=== PATIENT | female | born 1990 ===

== ENCOUNTER 2024-06-08 09:20 | Emergency (ER) | payer MEDICAID, SELFPAY ==
[2024-06-08 09:33] VITALS: BP 109/75; RESP 16; TEMP 36.4; O2SAT 98; BMI 27.4
[2024-06-08 09:47] LABS: Appearance Urine Cloudy (Clear); Bilirubin Urine 3+ (Negative); Blood Urine Negative (Negative); Color Urine Orange (Yellow); Glucose Urine Trace (Negative); Ketones Urine 1+ (Negative); Leukocyte Esterase Urine Negative (Negative); Nitrite Urine Negative (Negative); Protein Urine 2+ (Negative); Specific Gravity Urine >= 1.030 (1.000-1.030); Urobilinogen Urine >=8.0 (0.2-1.0)
[2024-06-08 10:03] LABS: RBC Urine 0-2 (0-2)
[2024-06-08 10:04] LABS: Bacteria Urine Few; Squamous Epithelial Cell Urine Many (None-Few)
--- NOTE | 2024-06-08 10:14 | CRLHL7_ITS ---
For Patients: As a result of the Century Cures Act, medical imaging exams and procedure reports are released immediately into your electronic medical record. You may view this report before your referring provider. If you have questions, please contact your health care provider. Indication: Shortness of breath Technique: Chest 2 views Comparison: None Findings/Impression: Cardiovascular and mediastinum: Heart size and vasculature are normal in caliber and appearance. Mediastinum is within normal limits. Lungs and pleural spaces: Lungs are clear. No sign of infiltrate or mass. No sign of pleural effusion. No pneumothorax. Bones and soft tissues: No significant findings. Dictated by Felice Cain MD @ 06/08/2024 10:49:03 AM (Electronically Signed)
[2024-06-08 10:23] LABS: PCR FLU A Negative PCR FLU A (Negative); PCR FLU B Negative PCR FLU B (Negative); PCR RSV Negative PCR RSV (Negative); SARS PCR* Negative SARS-CoV-2 (Negative)
[2024-06-08] MEDS: 0.9 % SODIUM CHLORIDE 500 ML 500 ML IV (10:47)
--- NOTE | 2024-06-08 10:59 | ED_ITS ---
HPI - General Adult General Date Seen: 06/08/24 Chief complaint: Cough Stated complaint: Rib pain, recurring fever and ill feeling Time Seen by Provider: 06/08/24 10:01 Source: patient Mode of arrival: ambulatory Limitations: no limitations History of Present Illness HPI narrative: Patient is a 34-year-old woman who presents because of flu-like symptoms for the past couple of days. She notes severe nausea, has not had anything to eat since yesterday. She has not had any vomiting and denies diarrhea, black or bloody stools. She also notes some pain in her ribcage primarily and the right side but to some degree all the way across. She feels like the left upper abdomen is swollen compared to the right. She notes that her urine is dark, denies other urinary symptoms. She feels somewhat short of breath and fatigued. She had a baby 5 months ago, she was nursing but said that her milk just dried up. She takes Wellbutrin and venlafaxine for depression, denies other s ignificant medical history. She had a no other abdominal surgeries. She denies tobacco or alcohol use. She says that during her she had a period of time where her LFTs were noted to be significantly elevated and so she has not been taking ibuprofen since then as she was under the impression that this was contributing, although then she corrected herself and said that maybe i t was Tylenol, she was not sure. She notes temperatures of 99 at home. No travel or ill contacts. Related Data Home Medications ?Medication ?Instructions ?Recorded ?Confirmed bupropion HCl 200 mg tablet,12 hr 200 mg PO DAILY 06/08/24 06/08/24 sustained-release (Wellbutrin SR) dextroamphetamine-amphetamine 10 10 mg PO DAILY 06/08/24 06/08/24 mg tablet (Adderall) trazodone 50 mg tablet 50 mg PO DAILY 06/08/24 06/08/24 venlafaxine 150 mg 150 mg PO DAILY 06/08/24 06/08/24 capsule,extended release 24 hr (Effexor XR) Allergies Allergy/AdvReac Type Severity Reaction Status Date / Time ondansetron (From Zofran) Allergy Intermediate Hives Verified 06/08/24 09:33 prochlorperazine (From Allergy Intermediate other Verified 06/08/24 09:33 Compazine) vancomycin AdvReac Severe Photosensit Verified 06/08/24 09:33 ivity Review of Systems Status of ROS: Reports: 10 or more systems reviewed and unremarkable except as noted in History and below [facility] Social History Do you use any of these nicotine containing products: None How often do you have a drink containing alcohol: never AUDIT-C Alcohol total score: 0 Non-prescribed substance use: denies use service: Yes Exam Narrative: Exam Narrative: Vital signs reviewed In general, alert, nontoxic woman. Breathing easily. Head: Normocephalic, atraumatic. Eyes: Sclera clear. Pupils equal and reactive. No significant scleral icterus. ENT: Mucous membranes moist. Neck: Supple without adenopathy. Heart: Regular rate and rhythm without murmur. Lungs: Clear. No increased work of breathing, crackles or wheezes. No CVA tenderness. Abdomen: Soft, nondistended. I do not appreciate any abdominal swelling. Really no significant tenderness, negative Abbott's. She says she has little bit of discomfort to deep palpation in the right upper quadrant and epigastrium. No rebound guarding or rigidity. Extremities: Well perfused, pulses intact. No significant edema. Neurologic: Alert, conversant. Speech fluent, face symmetric. Moves all extremities equally. Skin: Warm, dry well perfused. No jaundice, no rashes. Affect: Normal. Const: Vital Signs, click to edit/add: Vital Signs - 24 hr 06/08/24 09:33 06/08/24 11:35 Temperature 97.6 F Pulse Rate [Pulse Oximeter] 80 Respiratory Rate 16 16 Blood Pressure [Ri ght Upper Arm] 109/75 Pulse Oximetry 98 99 Oxygen Delivery Me thod Room Air Room Air Documenting provider has reviewed patient's vital signs: yes Course Course ED Course: Patient presents with somewhat vague symptoms of nausea, fatigue, reports of dark urine and fever although temperatures have been 99 at home. Her exam is unrevealing, abdomen is benign. we placed an IV here, give some morphine and Zofran. Feeling improved. Labs are notable for a somewhat depressed white blood cell count of 2.9, normal hemoglobin and platelets. Diff is unremarkable. INR is normal, D-dimer is slightly elevated at 1.22, but notably, her LFTs are significantly elevated, with an AST of 594, an ALT of 832, alk-phos is 279, total bili is 1.8, direct is 1.7. CRP is normal. I do think her problem is primarily in the hepatobiliary system. I do not think symptoms represent a PE. She had a right upper quadrant ultrasound which is read as negative by Radiology. Specifically, no gallstones and a normal common bile duct. Explanation for her elevated LFTs is at this time a little bit unclear. She does not seem to have specific risk factors for hepatitis, but I did add on a hepatitis panel. She had an episode of elevated LFTs during her which was not explained, she says that it was rechecked and they normalized. She has 10-25 white blood cells in her urine but has no urinary symptoms, I think we can reasonably wait on culture for this. I did discuss her case with Dr. Moore, on-call for General surgery. She does not feel that immediate cholecystectomy would be indicated at this time in the absence of stones and with a normal common bile duct. Additional imaging such as MRCP is unlikely to be helpful given that there is no ductal dilation. She did recommend outpatient HIDA scan to evaluate for biliary dysfunction. At this time, will trial p.o. as well as some oral oxycodone and see how she does symptomatically. She feels well at this time, she has had quite a few snacks and says her stomach feels markedly improved. We have set her up for a HIDA scan, she should see primary care for repeat LFTs later this week. Reviewed reasons to return such as severe uncontrolled pain, vomiting, fevers, yellowing of the skin or eyes or other worsening. She is comfortable with that plan. Vital Signs Vital signs: Initial Vital Signs Temperature 97.6 F 06/08/24 09:33 Temperature Source Temporal Artery Scan 06/08/24 09:33 Respiratory Rate 16 06/08/24 09:33 Blood Pressure 109/75 06/08/24 09:33 Blood Pressure Mean 86 06/08/24 09:33 Pulse Oximetry 98 06/08/24 09:33 Oxygen Delivery Method Room Air 06/08/24 09:33 Vital Signs Temperature 97.6 F 06/08/24 09:33 Respiratory Rate 16 06/08/24 09:33 Blood Pressure 109/75 06/08/24 09:33 Pulse Oximetry 98 06/08/24 09:33 Oxygen Delivery Method Room Air 06/08/24 09:33 Temperature 97.6 F 06/08/24 09:33 Pulse Rate 80 06/08/24 11:35 Respiratory Rate 16 06/08/24 11:35 Blood Pressure 109/75 06/08/24 09:33 Pulse Oximetry 99 06/08/24 11:35 Oxygen Delivery Method Room Air 06/08/24 11:35 Medications Administered Medications: Discontinued Medications Generic Name Dose Route Start Last Admin Trade Name Freq PRN Reason Stop Dose Admin Sodium Chloride 500 mls @ 500 mls/hr 06/08/24 10:18 06/08/24 11:44 0.9 % Sodium Chloride 500 Ml IV 06/08/24 11:17 Infused .Q1H ONE Infusion Metoclopramide HCl 10 mg/ 102 mls @ 306 mls/hr 06/08/24 10:19 06/08/24 11:06 Sodium Chloride IVPB 06/08/24 10:20 Not Given ONCE ONE Morphine Sulfate 4 mg 06/08/24 10:18 06/08/24 11:05 Morphine 4 Mg/Ml Inj IVP 06/08/24 10:19 4 mg ONCE ONE Administration Morphine Sulfate 4 mg 06/08/24 11:44 06/08/24 11:53 Morphine 4 Mg/Ml Inj IVP 06/08/24 11:45 4 mg ONCE ONE Administration Oxycodone HCl 5 mg 06/08/24 12:26 06/08/24 12:45 Oxycodone 5 Mg Tablet PO 06/08/24 12:27 5 mg ONCE ONE Administration Medical Decision Making Lab Data Labs: Lab Results 06/08/24 06/08/24 06/08/24 Range/Units 09:39 09:41 10:55 WBC 2.91 L (4.50-11.00) K/uL RBC 4.42 (4.30-5.90) m/uL Hgb 12.6 (12.0-16.0) gm/dL Hct 38.3 (37.0-53.0) % MCV 87 (80-100) fL MCH 29 (26-34) pg MCHC 33 (32-36) gm/dL RDW Coeff of Gina 13.4 (11.5-15.5) % Plt Count 175 (140-440) K/uL Neut % (Auto) 59.1 (42.0-72.0) % Lymph % (Auto) 23.7 (20-44) % [place] % (Auto) 10.0 (0.0-11.0) % Eos % (Auto) 6.5 (0.0-7.0) % Baso % (Auto) 0.7 (0.0-3.0) % Neut # (Auto) 1.70 (1.7-7.0) K/uL Lymph # (Auto) 0.70 L (0.90-2.90) K/uL [place] # (Auto) 0.30 (0.00-0.90) K/UL Eos # (Auto) 0.20 (0.00-0.50) K/uL Baso # (Auto) 0.00 (0.00-0.30) K/uL Abs Immat Gran (auto) 0.00 (0.00-0.30) K/uL Imm/Tot Granulo (auto) 0.0 % INR 0.88 L (0.91-1.10) D-Dimer Quant (PE/DVT) 1.22 H (0.00-0.50) ug/ml Sodium 137 (135-149) mmol/L Potassium 3.9 (3.6-5.1) mmol/L Chloride 105 (96-114) mmol/L Carbon Dioxide 23 (20-32) mmol/L Anion Gap 9 (7-15) mEq/L BUN 7 (5-24) mg/dL Creatinine 0.7 (0.5-1.5) mg/dL Estimated Creat Clear 89.56 Estimated GFR 116 ml/min Glucose 118 H (60-115) mg/dL Calcium 9.5 (8.4-10.6) mg/dL Total Bilirubin 1.8 H (0.1-1.5) mg/dL Direct Bilirubin 1.7 H (0.0-0.5) mg/dL AST 594 H (12-35) U/L ALT 832 H (4-35) U/L Alkaline Phosphatase 279 H (40-150) U/L C-Reactive Protein 0.9 (0.5-1.0) mg/dL Total Protein 7.1 (6.0-8.3) g/dL Albumin 4.4 (3.3-5.0) g/dL Lipase 66 (23-300) U/L TSH 0.576 (0.270-4.200) uIU/mL Urine Color Qulin A (Yellow) Urine Appearance Cloudy A (Clear) Urine pH 6.0 (5.0-8.5) Ur Specific Ke[place] >= 1.030 (1.000-1.030) Urine Protein 2+ A (Negative) Urine Glucose (UA) Trace A (Negative) Urine Ketones 1+ A (Negative) Urine Blood Negative (Negative) Urine Nitrite Negative (Negative) Urine Bilirubin 3+ A (Negative) Urine Urobilinogen >=8.0 A (0.2-1.0) Ur Leukocyte Esterase Negative (Negative) Urine RBC 0-2 (0-2) Urine WBC 10-25 A (0-5) Ur Squamous Epith Cells Many A (None-Few) Urine Bacteria Few A (None) Ethyl Alcohol < 0.01 L (0.01-0.03) % SARS-CoV-2 (PCR) Negative SARS-CoV-2 (Negative) Influenza Type A (PCR) Negative PCR FLU A (Negative) Influenza Type B (PCR) Negative PCR FLU B (Negative) RSV (PCR) Negative PCR RSV (Negative) Imaging Data Chest x-ray: Attestation: I have reviewed the pertinent imaging results. Radiologist's impression: Patient: radha hall MR#: [id number] : 1990 Acct:[id number] Loc: ED Service Date: 06/08/[address]: Ordering Physician: Nehal Chisholm M.D. Date of Service: 06/08/24 Procedure(s): XR chest 2V Accession Number(s): [id number] cc: Nehal Chisholm M.D.~ For Patients: As a result of the Century Cures Act, medical imaging exams and procedure reports are released immediately into your electronic medical record. You may view this report before your referring provider. If you have questions, please contact your health care provider. Indication: Shortness of breath Technique: Chest 2 views Comparison: None Findings/Impression: Cardiovascular and mediastinum: Heart size and vasculature are normal in caliber and appearance. Mediastinum is within normal limits. Lungs and pleural spaces: Lungs are clear. No sign of infiltrate or mass. No sign of pleural effusion. No pneumothorax. Bones and soft tissues: No significant findings. Dictated by Felice Cain MD @ 06/08/2024 10:49:03 AM US - abdomen: Attestation: I have reviewed the pertinent imaging results. Radiologist's impression: Patient: RADHA HALL Facility: [facility] . Site : 1990 Study: US-Abdomen RUQ-06/08/2024 12:13:06 PM Ordering Physician: Kathrine Calvert Final Report: INDICATION: Right upper quadrant abdomen pain. Elevated LFTs. TECHNIQUE: Ultrasound abdomen limited. Sonographic images of the right upper quadrant were obtained using drake-scale and color Doppler images. COMPARISON: None. FINDINGS: Liver: Normal in size and echotexture. No suspicious masses. No intrahepatic biliary dilatation. Gallbladder: No stones or sludge. Normal wall thickness. No pericholecystic fluid. Negative sonographic Abbott`s sign. Common bile duct: 5 mm. Pancreas: Unremarkable. Right kidney: Normal in size. Normal echotexture and cortex. No suspicious masses, stones, or hydronephrosis. IMPRESSION: Unremarkable right upper quadrant ultrasound. Dictated by Ricki Gonzalez MD @ 06/08/2024 12:25:44 PM Discharge Plan Discharge Clinical Impression: Hepatitis Patient Disposition: Home, Self-Care Condition: Improved Additional Instructions: Your liver enzymes are significantly elevated today, your AST is 594 and your ALT is 832. Your bilirubin is very mildly elevated as well at 1.8. Your ultrasound however is normal, there is no evidence of gallstones and your common bile duct is not dilated. Hepatitis studies are pending, etiology fear symptoms right now is a little unclear. We are recommending that you have a HIDA scan as an outpatient. You should be seen in clinic later this week if possible for recheck of your LFTs and review of your HIDA scan results if completed or assistance scheduling that test. If at any time the meantime you have worsening or severe pain, high fevers, uncontrolled vomiting, significant yellowing of your skin her eyes, or other new symptoms, return to the emergency department for re-evaluation. You can take ibuprofen if needed, avoid Tylenol, avoid alcohol. Oxycodone if needed for more significant pain, be aware this habit-forming and can be associated with fatigue, dizziness, confusion etcetera. Zofran if needed for nausea. Prescriptions: No Action venlafaxine [Effexor XR] 150 mg capsule,extended release 24hr 150 mg PO DAILY bupropion HCl [Wellbutrin SR] 200 mg tablet sustained-release 12 hr 200 mg PO DAILY dextroamphetamine-amphetamine [Adderall] 10 mg tablet 10 mg PO DAILY trazodone 50 mg tablet 50 mg PO DAILY Follow Up/Referrals: Provider,Not a Local [Primary Care Provider] - Stand Alone Forms: [employer] Info Instructions
[2024-06-08] MEDS: MORPHINE 4 MG/ML INJ IVP ×2 (11:05→11:53)
[2024-06-08 11:17] LABS: Basophils Percent Auto 0.7 % (0.0-3.0); Eosinophils Percent Auto 6.5 % (0.0-7.0); Hematocrit 38.3 % (37.0-53.0); Hemoglobin* 12.6 gm/dL (12.0-16.0); Lymphocytes Percent Auto 23.7 % (20-44); Mean Corpuscular HGB Conc 33 gm/dL (32-36); Mean Corpuscular Hemoglobin 29 pg (26-34); Mean Corpuscular Volume 87 fL (80-100); Neutrophils Percent Auto 59.1 % (42.0-72.0); Platelet Count* 175 K/uL (140-440); RDW Coefficient of Variation % 13.4 % (11.5-15.5); Red Blood Count 4.42 m/uL (4.30-5.90); White Blood Count* 2.91 K/uL (4.50-11.00)
[2024-06-08 11:31] LABS: Slide Review Reflex No
[2024-06-08 11:32] LABS: Albumin* 4.4 g/dL (3.3-5.0); Chloride* 105 mmol/L (96-114); Sodium* 137 mmol/L (135-149)
[2024-06-08 11:33] LABS: Potassium* 3.9 mmol/L (3.6-5.1)
[2024-06-08 11:35] VITALS: PULSE 80; RESP 16; O2SAT 99
[2024-06-08 11:35] LABS: Anion Gap 9 mEq/L (7-15); Bilirubin Direct* 1.7 mg/dL (0.0-0.5); Bilirubin Total* 1.8 mg/dL (0.1-1.5); Carbon Dioxide* 23 mmol/L (20-32); Creatinine* 0.7 mg/dL (0.5-1.5); Est. Creatinine Clearance* 89.56; Estimated Glomerular Filt Rate 116 ml/min
[2024-06-08 11:36] LABS: Alkaline Phosphatase* 279 U/L (40-150); Aspartate Amino Transferase* 594 U/L (12-35); Blood Urea Nitrogen* 7 mg/dL (5-24); Calcium* 9.5 mg/dL (8.4-10.6); Glucose* 118 mg/dL (60-115); Lipase* 66 U/L (23-300); Total Protein* 7.1 g/dL (6.0-8.3)
[2024-06-08 11:38] LABS: C Reactive Protein* 0.9 mg/dL (0.5-1.0)
[2024-06-08 11:39] LABS: Ethanol* < 0.01 % (0.01-0.03)
[2024-06-08 11:43] LABS: D Dimer Quantitative* 1.22 ug/ml (0.00-0.50)
--- NOTE | 2024-06-08 11:44 | CRLHL7_ITS ---
For Patients: As a result of the Century Cures Act, medical imaging exams and procedure reports are released immediately into your electronic medical record. You may view this report before your referring provider. If you have questions, please contact your health care provider. INDICATION: Right upper quadrant abdomen pain. Elevated LFTs. TECHNIQUE: Ultrasound abdomen limited. Sonographic images of the right upper quadrant were obtained using drake-scale and color Doppler images. COMPARISON: None. FINDINGS: Liver: Normal in size and echotexture. No suspicious masses. No intrahepatic biliary dilatation. Gallbladder: No stones or sludge. Normal wall thickness. No pericholecystic fluid. Negative sonographic Abbott`s sign. Common bile duct: 5 mm. Pancreas: Unremarkable. Right kidney: Normal in size. Normal echotexture and cortex. No suspicious masses, stones, or hydronephrosis. IMPRESSION: Unremarkable right upper quadrant ultrasound. Dictated by Ricki Gonzalez MD @ 06/08/2024 12:25:44 PM (Electronically Signed)
[2024-06-08 11:50] LABS: INR 0.88 (0.91-1.10); Prothrombin Time 12.5 Seconds
[2024-06-08 12:26] LABS: TSH With Reflex to FT4* 0.576 uIU/mL (0.270-4.200)
[2024-06-08 12:37] LABS: Alanine Aminotransferase* 832 U/L (4-35)
[2024-06-08] MEDS: OXYCODONE 5 MG TABLET PO (12:45)
[2024-06-09 20:36] LABS: Hep A Ab, IgM Negative (Negative); Hep B Core Ab, IgM Negative (Negative); Hep B Surface Antigen Negative (Negative); Hep C Ab by CIA Index 0.22 IV; Hep C Ab by CIA Interp Negative (Negative)
--- NOTE | 2024-06-10 09:38 | ED.NURSE ---
Pt was scheduled for an outpatient HIDA scan yesterday but was a no show. Per radiology, they called and left messages with no response.
== END 2024-06-08 14:54 | disposition home or self-care (01) ==
PROVIDERS: Emergency Provider Emergency Medicine
DX: K75.9 Inflammatory liver disease, unspecified (principal)
CPT/HCPCS: 36415; 71046; 76705; 80048; 80074; 80076; 81001; 82077; 83690; 84443; 85025; 85379; 85610; 86140; 87086; 87631; 96374; 96375; 99284; A9270; J2270; J7030